=== PATIENT | male | born 1980 | race Two or more races ===

== ENCOUNTER 2018-06-01 10:53 | Day surgery (SDC) | payer MEDICAID ==
[2018-06-01] VITALS (18 sets, daily range): BP systolic 113–140; BP diastolic 43–96
[~2018-06-01] VITALS: Ht 167.6 cm; Wt 77.1 kg
[~2018-06-01 10:53] MED LIST: NO HOME MEDS; cefotetan 2gm/isosm dext IVPB 50 ML IV ONE; famotidine 20mg tablet PO ONE; ringers solution, lacted 1,000 ML IV SCH
[2018-06-01] MEDS ORDERED: LIDOcaine 1% (10mg/ml) 2ml vial ONE (11:46)
[2018-06-01 12:27] LABS: BASOPHILS % (AUTO) 0.7 % (0-1); EOSINOPHILS # (AUTO) 0.2 X10'3 (0-0.9); EOSINOPHILS % (AUTO) 2.2 % (0-6); LYMPHOCYTES # (AUTO) 2.3 X10'3 (1.1-4.8); LYMPHOCYTES % (AUTO) 33.1 % (21-51); MEAN CORPUSCULAR HEMOGLOBIN 32.4 PG (27.0-31.0); MEAN CORPUSCULAR VOLUME 95.1 FL (78-98); MEAN PLATELET VOLUME 7.1 FL (7.4-10.4); MONOCYTES # (AUTO) 0.6 X10'3 (0-0.9); MONOCYTES % (AUTO) 8.6 % (2-12); NEUTROPHILS # (AUTO) 3.8 X10'3 (1.8-7.7); NEUTROPHILS % (AUTO) 55.4 % (42-75); PRE OP HEMATOCRIT 47.7 % (42.0-52.0); PRE OP HEMOGLOBIN 16.2 g/dL (14.0-17.9); PRE OP PLATELET COUNT 336 X10'3 (140-440); RED BLOOD COUNT 5.02 X10'6 (4.70-6.10); RED CELL DISTRIBUTION WIDTH 12.7 % (11.5-14.5)
[2018-06-01 12:39] LABS: ALBUMIN 3.9 G/DL (3.4-5.0); ALBUMIN/GLOBULIN RATIO 1.1 (1.1-1.5); ALKALINE PHOSPHATASE 82 IU/L (46-116); BLOOD UREA NITROGEN 15 MG/DL (7-18); CALCIUM 9.1 MG/DL (8.5-10.1); CHLORIDE 99 MMOL/L (99-107); CREATININE 0.79 MG/DL (0.60-1.10); PRE OP ANION GAP 9 (8-16); PRE OP AST 77 U/L (10-37); PRE OP BILIRUB, TOTAL 0.5 MG/DL (0.0-1.0); PRE OP GLUCOSE 86 MG/DL (70-104); PRE OP SODIUM 133 MMOL/L (135-145); TOTAL CARBON DIOXIDE 24.7 MMOL/L (24-32); TOTAL PROTEIN 7.3 G/DL (6.4-8.2); eGFR > 90 ML/MIN
[2018-06-01 12:40] LABS: PRE OP POTASSIUM 4.1 MMOL/L (3.4-5.1)
[2018-06-01 12:42] LABS: PRE OP ALT 186 U/L (30-65)
[2018-06-01] MEDS ORDERED: ceFAZolin 1000mg inj ONE (12:51)
[2018-06-01] MEDS ORDERED: BUPIVAcaine/PF 2.5mg/ml (0.25%) 10ml vial ONE (12:51)
[2018-06-01] MEDS ORDERED: sevoflurane 250ml liquid IH ONE (13:07)
[2018-06-01] MEDS ORDERED: atropine 0.1mg/ml 10ml syringe ONE (13:07)
[2018-06-01] MEDS ORDERED: midazolam 2 mg/2 ml injection ONE (13:09)
[2018-06-01] MEDS ORDERED: fentaNYL /PF 50mcg/ml 5ml ampule ONE (13:10)
[2018-06-01] MEDS ORDERED: rocuronium 10mg/ml inj IV ONE (13:18)
[2018-06-01] MEDS ORDERED: propofol inj 20 ML IV ONE (13:18)
[2018-06-01] MEDS ORDERED: LIDOcaine 2% (20mg/ml) 5ml vial ONE (13:18)
[2018-06-01] MEDS ORDERED: sugammadex 200mg/2ml injection IV ONE (14:18)
--- NOTE | 2018-06-01 14:44 | NUR ---
Received from OR via [facility], accompanied by Anesthesiologist DR ROBLES and report given by Anesthesiolgist. PT DROWSY, 3 LAP SITES COVERED W/JOSE M PATE 3 SMALL BLOOD SPOTS LESS THAN DIME SIZE, 1 BANDAID CDI. Addendum: 06/01/18 at 1505 by Marissa Barkley RN Amended: Links added.
[2018-06-01] MEDS ORDERED: proCHLORperazine 10 MG/2 ml inj IV PRN (14:55)
[2018-06-01] MEDS ORDERED: morphine 4 MG/ML inj SYRINge IV PRN (14:55)
[2018-06-01] MEDS ORDERED: ondansetron/PF 4mg/2ml inj IV PRN (14:55)
[2018-06-01] MEDS ORDERED: meperidine/PF 25mg/ml syringe IV PRN ×2 (14:55)
[2018-06-01] MEDS ORDERED: ringers solution, lacted 1,000 ML IV SCH (14:55)
[2018-06-01] MEDS ORDERED: dexamethasone sod phosphate 4mg/ml inj. ONE (15:10)
[2018-06-01] MEDS ORDERED: neostigmine methylsulfate 1 MG/ML 10ml vial ONE (15:10)
[2018-06-01] MEDS ORDERED: ondansetron/PF 4mg/2ml inj ONE (15:10)
[2018-06-01] MEDS ORDERED: albuterol 60 PUFF/8GM Inhaler IH ONE (15:10)
[2018-06-01] MEDS ORDERED: glycopyrrolate 0.2mg/ml inj ONE (15:10)
[2018-06-01] MEDS: meperidine/PF 25mg/ml syringe IV PRN ×2 (15:23→15:39)
[2018-06-01] MEDS: morphine 4 MG/ML inj SYRINge IV PRN ×2 (15:52→16:10)
[2018-06-01] MEDS ORDERED: HYDROcodone/acetaminophen 10/325mg tab PO ONE (16:35)
--- NOTE | 2018-06-01 17:31 | NUR ---
DR ROBLES WANTS PT TO VOID BEFORE DISCHARGE, PT UNABLE AT THIS POINT, BLADDER SCANNED FOR 429 ML, UPDATED DR ROBLES, ATTEMPT TO CALL DR DONHAUE, UNABLE TO REACH, DR ROBLES ORDERED A BEER FOR PT, IF STILL UNABLE TO DRINK, ORDERS TO PLACE SERRANO CATHETER. Addendum: 06/01/18 at 1733 by Marissa Barkley RN Amended: Links added. Addendum: 06/01/18 at 1812 by Marissa Barkley RN ERROR-IF STILL UNABLE TO VOID, NOT DRINK.
--- NOTE | 2018-06-01 17:52 | NUR ---
DR DONAHUE CALLED, UPDATED, ORDERS TO SEND PT HOME AND IF UNABLE TO VOID BY MIDNIGHT, PT NEEDS TO GO TO ED FOR CATHETER. Addendum: 06/01/18 at 1754 by Marissa Barkley RN Amended: Links added.
--- NOTE | 2018-06-01 18:14 | NUR ---
PT WAS ABLE TO VOID 195ML, D'C INSTRUCTIONS GONE OVER AND VERBALIZED UNDERSTANDING, PT D'CD TO HOME W/. Addendum: 06/01/18 at 1820 by Marissa Barkley RN Amended: Links added.
== END 2018-06-01 18:14 | disposition home or self-care (01) ==
LOC: PAS 10:53 → EDBD 14:30 → PAS 18:14
PROVIDERS: ATTEND Surgery
DX: K80.10 Calculus of gallbladder with chronic cholecystitis without obstruction (principal); G43.909 Migraine, unspecified, not intractable, without status migrainosus; F17.210 Nicotine dependence, cigarettes, uncomplicated; Z72.89 Other problems related to lifestyle
CPT/HCPCS: 36415; 47562; 74018; 76000; 80053; 85025; C9399; J0461; J0690; J1100; J2001; J2175; J2250; J2270; J2405; J2704; J2710; J3010; J3490; J7120; A7000

== ENCOUNTER 2024-10-07 21:39 | Emergency (ER) | payer MEDICAID ==
[~2024-10-07] VITALS: Ht 167.6 cm; Wt 61.2 kg
[~2024-10-07 21:39] MED LIST changes: -cefotetan 2gm/isosm dext IVPB 50 ML IV ONE; -famotidine 20mg tablet PO ONE; -ringers solution, lacted 1,000 ML IV SCH
[2024-10-07 21:57] VITALS: TEMP 96.8
[2024-10-07 22:19] LABS: LEUKOCYTE ESTERASE ,URINE NEGATIVE (Neg); OCCULT BLOOD,URINE NEGATIVE (Neg)
[2024-10-07 22:28] LABS: UA COLLECTION TYPE CLN CATCH MIDSTREAM
[2024-10-07 22:29] LABS: NITRITES, URINE NEGATIVE (Neg)
[2024-10-07 22:31] LABS: MUCUS STRANDS MANY /LPF (Neg); SQUAMOUS EPITHELIAL CELL,UR FEW /LPF (FEW)
[2024-10-07 22:46] LABS: MEAN PLATELET VOLUME 7.4 FL (7.4-10.4); RED CELL DISTRIBUTION WIDTH 13.4 % (11.5-14.5)
[2024-10-07 23:08] LABS: CREATININE 0.73 MG/DL (0.60-1.10); TOTAL CARBON DIOXIDE 28.5 MMOL/L (24-32); eCRCL 114 ML/MIN; eGFR > 90 ML/MIN
[2024-10-07 23:11] LABS: ETHANOL < 10 MG/DL (<10)
--- NOTE | 2024-10-07 23:38 | Physician Documentation ---
History of Present Illness ~ Chief Complaint: ETOH Stated Complaint: ETOH WITHDRAWALS Time Seen by MD: 23:37 HPI The patient reports a long history of alcohol abuse, and presents today with concern for alcohol withdrawal and abdominal pain. He tells me that his 3 weeks ago and he has been drinking even more alcohol than normal. He tells me he drinks at least a gallon of hard alcohol daily. He has not had any alcohol to drink today. He tells me this is because he has developed severe abdominal pain. He states it is in the epigastric pain, it is burning, and severe. He has been feeling nauseous and vomiting. He has not really kept down any food for awhile. He does feel anxious and shaky. He does have a history of alcohol withdrawal but no history of alcohol wi thdrawal seizures Tetanus within 5 years?: No Medication Reconciliation Allergies: Coded Allergies: No Known Allergies (Unverified , 10/07/24) Scheduled Chlordiazepoxide Hcl (Librium), 25 MG PO as directed Scheduled PRN ONDANSETRON ODT 4mg tablet (Ondansetron Odt), 1 TAB PO Q6H PRN PRN for nausea/vomiting Miscellaneous Medications Home Med List (No Home Medications), (Reported) Past Medical History Past Medical History: *PSYCH* Alcohol Use: Rarely Drug Use: methamphetamine Lives In: Home Review of Systems Constitutional: Denies: fever Gastrointestinal: Reports: abdominal pain, nausea, vomiting Physical Exam Vital Signs: Temperature: 96.8, Source: Temporal, Heart Rate: 98, Respiratory Rate: 15, BP: 155/115, Pulse Oximetry: 99, Weight: 61.250 Physical Exam General: This is a tired appearing young man HEENT: Atraumatic, oropharynx is dry, he does have tongue fasciculations Heart: Regular rate and rhythm, heart rate in the 80s during my exam, normal- appearing peripheral perfusion Lungs: normal work of breathing, normal oxygen saturation on room air Abdomen: Soft, nondistended. He is very tender to palpation in the epigastric region with voluntary guarding Extremities: Warm and well-perfused Neuro: Alert and oriented, no focal deficits Psychiatric: Appears mildly anxious, has a resting tremor in his extremities, has findings consistent with alcohol withdrawal Progress Results/Orders Results/Orders Orders - GEMMA LEAL MD Cult Urine + [address] (10/07/24 22:30) Completed Orders - GEMMA LEAL MD Cbc/Diff (10/07/24 22:00) BMP (10/07/24 22:00) Lipase (10/07/24 22:00) CMP (10/07/24 22:00) Ethanol (10/07/24 22:01) Ua W/Microscopic, Cult If Ind (10/07/24 22:05) Normal Saline 1000ml (Sodium Chloride 10 (10/07/24 23:45) Lorazepam Inj (Ativan Inj) (10/07/24 23:45) Ondansetron Inj. (Zofran 4mg/2ml Vial) (10/07/24 23:45) Mag & Alum Hydrox/Simeth Susp (Maalox Or (10/07/24 23:45) Lidocaine 2% Viscous (Xylocaine 2% Visco (10/07/24 23:45) Pantoprazole 40mg Iv (Protonix 40mg Iv) (10/07/24 23:45) Lorazepam Tablet (Ativan Tablet) (10/08/24 05:50) Chlordiazepoxide Capsule (Librium Capsul (10/08/24 05:50) Medications Received in ER Medications (Trade) Dose Ordered Sig/Nelly Route PRN Reason Start Time Stop Time Status Last Admin Dose Admin Sodium Chloride 1,000 ml @ 1,000 mls/hr ONCE ONCE IV 10/07/24 23:45 10/08/24 00:44 DC 10/08/24 00:07 1,000 MLS/HR (Ativan inj) 2 mg ONCE ONCE IV 10/07/24 23:45 10/07/24 23:47 DC 10/08/24 00:06 2 MG (Zofran 4mg/2ml vial) 4 mg ONCE ONCE IV 10/07/24 23:45 10/07/24 23:47 DC 10/08/24 00:06 4 MG (Maalox oral suspension) 30 ml ONCE ONCE PO 10/07/24 23:45 10/07/24 23:47 DC 10/08/24 00:06 30 ML (Xylocaine 2% Viscous 15mL cup) 15 ml Q4H PRN MM sore throat 10/07/24 23:45 10/08/24 06:15 DC 10/08/24 02:46 15 ML (Protonix 40mg IV) 40 mg ONCE ONCE IV 10/07/24 23:45 10/07/24 23:47 DC 10/08/24 00:06 40 MG (Ativan tablet) 2 mg ONCE ONCE PO 10/08/24 05:50 10/08/24 05:58 DC 10/08/24 06:08 2 MG (Librium capsule) 50 mg ONCE ONCE PO 10/08/24 05:50 10/08/24 05:58 DC 10/08/24 06:08 50 MG Vital Signs 10/07/24 10/07/24 10/07/24 10/08/24 21:57 23:00 23:00 00:00 Temp 96.8 Pulse 98 87 82 Resp 15 20 16 16 B/P (MAP) 155/115 154/120 (131) 162/114 (130) Pulse Ox 99 99 100 10/08/24 10/08/24 10/08/24 10/08/24 01:00 02:00 03:00 04:00 Pulse 87 83 84 80 Resp 16 12 17 14 B/P (MAP) 150/106 (121) 145/96 (112) 147/106 (120) 150/103 (119) Pulse Ox 99 97 97 96 10/08/24 10/08/24 05:00 06:13 Pulse 75 87 Resp 16 16 B/P (MAP) 144/98 (113) 149/94 Pulse Ox 96 98 Laboratory Tests Test 10/07/24 22:05 10/07/24 22:30 Urine Specimen Description Cln catch midstream Urine Color [place] Urine Clarity Clear Urine pH 6.5 Urine Specific [place] 1.025 Urine Protein 100 H Urine Glucose (UA) 250 H Urine Ketones >=80 Urine Occult Blood Negative Urine Nitrite Negative Urine Bilirubin Moderate Urine Urobilinogen 4.0 H Urine Leukocyte Esterase Negative Urine RBC 0-2 Urine WBC 10-20 H Urine Squamous Epithelial Cells Few Urine Bacteria Few Urine Mucus Many Urine Culture Indicated Indicated Volume Urine Centrifuged 10 ml Urine Comment White Blood Count 8.5 Red Blood Count 4.66 L Hemoglobin 15.8 Hematocrit 46.4 Mean Corpuscular Volume 99.6 H Mean Corpuscular Hemoglobin 34.0 H Mean Corpuscular Hemoglobin Concent 34.1 Red Cell Distribution Width 13.4 Platelet Count 394 Mean Platelet Volume 7.4 Neutrophils (%) (Auto) 82.5 H Lymphocytes (%) (Auto) 9.5 L Monocytes (%) (Auto) 7.3 Eosinophils (%) (Auto) 0.4 Basophils (%) (Auto) 0.3 Neutrophils # (Auto) 7.0 Lymphocytes # (Auto) 0.8 L Monocytes # (Auto) 0.6 Eosinophils # (Auto) 0.0 Basophils # (Auto) 0.0 CBC Comment Sodium Level 135 Potassium Level 3.5 Chloride Level 98 L Carbon Dioxide Level 28.5 Anion Gap 9 Blood Urea Nitrogen 14 Creatinine 0.73 Estimated GFR/1.73 m2 > 90 BUN/Creatinine Ratio 19.2 Glucose Level 121 H Calcium Level 8.8 Total Bilirubin 0.9 Aspartate Amino Transf (AST/SGOT) 217 H Alanine Aminotransferase (ALT/SGPT) 230 H Alkaline Phosphatase 81 Total Protein 8.1 Albumin 4.2 Globulin 3.9 Albumin/Globulin Ratio 1.1 Lipase 32 Chemistry Comments Ethyl Alcohol Level < 10 Microbiology Date/Time Source Procedure Growth Status 10/07/24 22:30 Urine Clean Catch Midstream Urine Culture - Preliminary Culture received. Resulted Medical Decision Making Differential Dx:Considerations: Intoxication - ETOH, Intoxication - other drug, Sub. Abuse -continuous, Dehydration, Hepatitis, Pancreatitis Additional Comment Differential includes alcohol withdrawal, gastritis, GI bleed Assessment The patient presents with abdominal pain and symptoms consistent with alcohol withdrawal. Per his history and exam this all appears consistent with alcoholic gastritis with alcohol withdrawal and dehydration. His laboratory testing shows no evidence of hepatitis or pancreatitis. No acute anemia. He was given symptomatic treatment including Ativan, IV fluids, nausea medicine, and treatment for gastritis. He was observed here in the emergency department for several hours, during which time his symptoms remain controlled. Following this, I did offer admission for further treatment of his alcohol withdrawal, but he declined. He wanted to return home with outpatient management. He will be discharged with a Librium taper and symptomatic treatment including for alcoholic gastritis. Return precautions given. Departure Time of Disposition: 05:50 Disposition: HOME / SELF CARE / HOMELESS Impression: Primary Impression: Alcohol withdrawal syndrome Additional Impressions: Alcoholic gastritis Epigastric pain Condition: Improved Discharge Instructions: Gastritis, Adult Referrals: NO PRIMARY CARE PROVIDER (PCP) Prescriptions ONDANSETRON ODT 4mg tablet (ONDANSETRON ODT) 4 Mg Tab.rapdis 1 TAB PO Q6H PRN PRN for nausea/vomiting for 4 Days, #16 TAB 0 Refills Prov: GEMMA LEAL MD 10/08/24 Chlordiazepoxide Hcl (Librium) 25 Mg Capsule 25 MG PO as directed, #18 CAP 0 Refills Take 2 capsules (50mg) four times a day for 1 day, then Take 1 capsules (25mg) four times a day for 1 day, then Take 1 capsules (25mg) three times a day for 1 day, then Take 1 capsules (25mg) two times a day for 1 day, then Take 1 capsules (25mg) once a day for 1 day, then stop Prov: GEMMA LEAL MD 10/08/24 Education Educated: Patient Educated regarding: diagnosis, treatment, need for follow up Signature Scribe Signature: [email or web address] Attestation: GEMMA Jameson MD Oct 07, 2024 23:38
[2024-10-08] MEDS: mag hydrox/Alum hydrox/simeth 30ml oral suspension PO ONE (00:06)
[2024-10-08] MEDS: ondansetron/PF 4mg/2ml inj IV ONE (00:06)
[2024-10-08] MEDS: normal saline 1000ml 1,000 ML IV ONE (00:07)
[2024-10-08] MEDS: LIDOcaine 2% Viscous 15ml cup MM PRN (02:46)
[2024-10-08] MEDS ORDERED: CHLO25CA10 PO (05:56)
[2024-10-08] MEDS ORDERED: ONDA-243 PO (05:56)
[2024-10-08 06:13] VITALS: BP 149/94; PULSE 87; RESP 16; O2SAT 98
== END 2024-10-08 06:15 | disposition home or self-care (01) ==
LOC: ER 21:41
DX: K29.20 Alcoholic gastritis without bleeding (principal); F10.239 Alcohol dependence with withdrawal, unspecified; F15.90 Other stimulant use, unspecified, uncomplicated; Z79.899 Other long term (current) drug therapy; Y90.9 Presence of alcohol in blood, level not specified
CPT/HCPCS: 36415; 80053; 80320; 81001; 83690; 85025; 87088; 96361; 96374; 96375; 99285; J2060; J2405; J2470; J7030